=== PATIENT | male | born 1990 | race Two or more races ===

== ENCOUNTER 2019-08-01 13:35 | Emergency (ER) | payer MEDICAID ==
[~2019-08-01] VITALS: Ht 193 cm; Wt 158.8 kg
[~2019-08-01 13:35] MED LIST: OMEP20CA74 PO
[2019-08-01] MEDS ORDERED: KETOROLAC TROMETH 60MG/2ML VIAL IM ONE (16:15)
[2019-08-01 16:25] VITALS: BP 138/70
== END 2019-08-01 17:13 | disposition home or self-care (01) ==
LOC: ER 13:35
DX: S16.1XXA Strain of muscle, fascia and tendon at neck level, initial encounter (principal); S39.012A Strain of muscle, fascia and tendon of lower back, initial encounter; W00.0XXA Fall on same level due to ice and snow, initial encounter; Y93.29 Activity, other involving ice and snow; Y92.330 Ice skating rink (indoor) (outdoor) as the place of occurrence of the external cause; Y99.8 Other external cause status
CPT/HCPCS: 72040; 72100; 96372; 99283; J1885

== ENCOUNTER 2019-08-16 14:04 | Emergency (ER) | payer MEDICAID ==
[~2019-08-16] VITALS: Ht 193 cm; Wt 158.8 kg
[2019-08-16] MEDS ORDERED: cefTRIAXone SOD 1,000 MG VL IM ONE (17:15)
[2019-08-16 17:27] VITALS: BP 134/89
== END 2019-08-16 17:45 | disposition home or self-care (01) ==
LOC: ER 14:04
DX: J03.00 Acute streptococcal tonsillitis, unspecified (principal)
CPT/HCPCS: 96372; 99283; J0696

== ENCOUNTER 2020-03-05 15:57 | Emergency (ER) | payer MEDICAID ==
[~2020-03-05] VITALS: Ht 193 cm; Wt 190.5 kg
[2020-03-05 16:41] VITALS: BP 148/93
== END 2020-03-05 17:44 | disposition home or self-care (01) ==
LOC: ER 15:57
DX: J06.9 Acute upper respiratory infection, unspecified (principal); F41.9 Anxiety disorder, unspecified
CPT/HCPCS: 71045